=== PATIENT | female | born 1960 | race Two or more races ===

== ENCOUNTER 2019-03-25 06:20 | Inpatient (IN) | payer OTHER ==
[2019-03-25] VITALS (11 sets, daily range): BP systolic 95–142; BP diastolic 50–87
[~2019-03-25] VITALS: Ht 154.9 cm; Wt 89.4 kg
[~2019-03-25 06:20] MED LIST: NKM
[2019-03-25] MEDS ORDERED: ceFAZolin sod 1 GM in NS 55 ML IVPB ONE (07:00)
[2019-03-25] MEDS ORDERED: Propofol 1,000mg/ 100ml btl IV ONE ×2 (07:30→08:30)
[2019-03-25] MEDS ORDERED: Succinylcholine 20mg/ml 10ml vial ONE ×2 (07:33→08:30)
[2019-03-25] MEDS ORDERED: Rocuronium Bromide 50mg/5ml Inj IV ONE ×2 (07:33→08:30)
[2019-03-25] MEDS ORDERED: Midazolam 2mg/2ml Inj ONE (08:08)
[2019-03-25] MEDS ORDERED: fentaNYL 100 mcg/2 mL IV ONE (08:08)
[2019-03-25] MEDS ORDERED: Sterile Water Irrig 1000ml IRRIG ONE (08:30)
[2019-03-25] MEDS ORDERED: NS Irrig 1000ml ONE (08:30)
[2019-03-25] MEDS ORDERED: LR 1000ml ONE (08:30)
[2019-03-25] MEDS ORDERED: Thrombin 5000 units TOPIC ONE (08:47)
[2019-03-25] MEDS ORDERED: Gelfoam Size TOPIC ONE (08:48)
[2019-03-25] MEDS ORDERED: Bacitracin 50000 Units Vial ONE (08:48)
[2019-03-25] MEDS ORDERED: Bupivacaine w/Epi 0.5% 30ml Vial INJ ONE (08:48)
[2019-03-25] MEDS ORDERED: Sodium Chloride 10ml vial INJ ONE (09:46)
[2019-03-25] MEDS ORDERED: Neostigmine 1mg/ml 10ml Inj ONE (09:46)
[2019-03-25] MEDS ORDERED: Glycopyrrolate 0.2mg/ml 1ml Vial ONE (09:46)
[2019-03-25] MEDS ORDERED: Ketorolac 30mg Inj ONE (09:46)
[2019-03-25] MEDS ORDERED: Morphine Sulfate 10mg/ml Inj ONE (09:46)
--- NOTE | 2019-03-25 09:57 | Anethesia Preoperative Eval ---
Anesthesia Pre-op PMH/ROS General Date of Evaluation: Mar 25, 2019 Time of Evaluation: 08:20 Anesthesiologist: Nancy ASA Score: ASA 2 Mallampati Score Class I : Soft palate, uvula, fauces, pillars visible Class II: Soft palate, uvula, fauces visible Class III: Soft palate, base of uvula visible Class IV: Only hard plate visible Mallampati Classification: Class II Surgeon: Xuan Diagnosis: Lumbar radiculopathy Surgical Procedure: Lumbar fusion with laminotomy Anesthesia History: none Family History: no anesthesia problems Allergies: Coded Allergies: No Known Allergies (Unverified , 03/19/19) Medications: see eMAR Patient NPO?: Yes NPO Date: Mar 24, 2019 NPO Time: 2099 Past Medical History Cardiovascular: Denies: HTN, CAD, VT, valve dz, arrhythmia, other Pulmonary: Denies: asthma, COPD, LUH, other Gastrointestinal/Genitourinary: Reports: GERD; Denies: CRI, ESRD, other Neurologic/Psychiatric: Reports: other - chronic pain; Denies: dementia, CVA, depression/anxiety, TIA Endocrine: Denies: DM, hypothyroidism, steroids, other HEENT: Denies: cataract (L), cataract (R), glaucoma, [place] (L), [place] (R), other Hematology/Immune: Denies: anemia, DVT, bleeding disorder, other Musculoskeletal/Integumentary: Denies: OA, RA, DJD, DDD, edema, other Other: obesity PMH Narrative: as above PSxH Narrative: R ankle ORIF Anesthesia Pre-op Phys. Exam Physician Exam Last Vital Signs Date Time Temp Pulse Resp B/P (MAP) Pulse Ox O2 Delivery O2 Flow Rate FiO2 03/25/19 08:03 Room Air 03/25/19 07:28 98.2 85 20 142/87 (105) 98 Constitutional: NAD Neurologic: CN 2-12 intact Cardiovascular: RRR, no M/R/G Respiratory: CTA Gastrointestinal: S/NT/ND Airway Exam Mallampati Score: Class II MO: full Neck: flexible ROM: full Teeth: intact Dentures: no upper, no lower Anesthesia Pre-op A/P Labs see chart Studies Pre-op Studies: EKG - NSR, CXR - WNL Risk Assessment & Plan Assessment: ASA 2 Plan: GA with ETT neuromonitoring Status Change Before Surgery: No Pre-Antibiotics Drug: Ancef 2gr. Given Within 1 Hr of Incision: Yes Time Given: 09:40 Jeremy Cruz MD Mar 25, 2019 09:57
[2019-03-25] MEDS ORDERED: Acetaminophen (Non formulary) 100 ML IV ONE (10:00)
[2019-03-25] MEDS ORDERED: ePHEDrine 50mg/ml Inj ONE (10:21)
--- NOTE | 2019-03-25 11:45 | Pre-Procedure Note/Attestation ---
Pre-Procedure Note/Attestation Complete Prior to Procedure Procedure Narrative: L45 XLIF/PSF with decompression Indications for Procedure Pre-Operative Diagnosis: L45 stenosis and spondylolisthesis Attestation I attest that I discussed the nature of the procedure; its benefits; risks and complications; and alternatives (and the risks and benefits of such alternatives ), prior to the procedure, with the patient (or the patient's legal contact representative). I attest that, if there was a reasonable possibility of needing a blood transfusion, the patient (or the patient's legal contact representative) was given the [facility] standardized written summary, pursuant to the Eliezer Dylan Blood Safety Act ([place] Health and Safety Code # 1645, as amended). I attest that I re-evaluated the patient just prior to the surgery and that there has been no change in the patient's H&P, except as documented below: Erickson Govea MD Mar 25, 2019 11:45
[2019-03-25] MEDS ORDERED: Vancomycin 1gm vial IVPB ONE (12:17)
[2019-03-25] MEDS ORDERED: Propofol 200mg/20ml IV ONE ×4 (12:22→14:39)
[2019-03-25] MEDS ORDERED: Rate Change PCA 1 Each MISC PRN (13:30)
[2019-03-25] MEDS ORDERED: Chloraseptic Spray 20mL Bottle ORAL PRN (13:30)
[2019-03-25] MEDS ORDERED: oxyCODONE 5mg IR tab ORAL PRN (13:30)
[2019-03-25] MEDS ORDERED: Hydromorphone 0.5mg/0.5ml inj SUBQ PRN (13:30)
[2019-03-25] MEDS ORDERED: Cyclobenzaprine 10mg Tab ORAL PRN (13:30)
[2019-03-25] MEDS ORDERED: PCA Education Pamphlet MISC ONE (13:30)
[2019-03-25] MEDS ORDERED: Metoclopramide 10mg/2ml Inj IVP PRN (16:00)
[2019-03-25] MEDS ORDERED: Midazolam 2mg/2ml Inj IVP PRN (16:00)
[2019-03-25] MEDS ORDERED: DiphenhydrAMINE 50mg/ml Inj IVP PRN (16:00)
[2019-03-25] MEDS ORDERED: Ketorolac 30mg Inj IV PRN (16:00)
[2019-03-25] MEDS ORDERED: Hydromorphone 0.5mg/0.5ml inj IVP PRN (16:00)
[2019-03-25] MEDS ORDERED: LR 1000ml 1,000 ML IVLG SCH (16:00)
[2019-03-25] MEDS ORDERED: Meperidine 50mg/ml Inj(FOR RIGORS ONLY) IVP PRN (16:00)
[2019-03-25] MEDS ORDERED: Milk of Magnesia 30ml Ud ORAL PRN (16:30)
--- NOTE | 2019-03-25 16:38 | Brief Operative Note ---
Immediate Post Operative Note Operative Note Pre-op Diagnosis: L45 stenosis and spondylolisthesis Procedure: L45 XLIF, psf, and laminectomy L4 and L5 Post-op Diagnosis: same as pre-op Surgeon: yovana Propeller Tester: OLIVIER Booker Additional Surgeons: Bc Anesthesiologist: dex Anesthesia: general Specimen: none Complications: none Condition: stable Fluids: 2L Estimated Blood Loss: volume - 300 Drains: hemovac Implant(s) used?: Yes - 4web lat cage, spinal element screws Erickson Govea MD Mar 25, 2019 16:38
--- NOTE | 2019-03-25 17:07 | Immediate Post-Op Evaluation ---
Immediate Post-Op Evalulation Immediate Post-Op Evalulation Procedure: Lateral approch to L4-L5 discectomy and interbody fusion with pedicle screw Date of Evaluation: Mar 25, 2019 Time of Evaluation: 17:06 IV Fluids: 2000 Blood Products: none Estimated Blood Loss: 300 Urinary Output: 700 Blood Pressure Systolic: 106 Blood Pressure Diastolic: 68 Pulse Rate: 112 Respiratory Rate: 22 O2 Sat by Pulse Oximetry: 99 Temperature (Fahrenheit): 98.3 Pain Score (1-10): 1 Nausea: No Vomiting: No Complications none Patient Status: reacts, patent, extubated, none Hydration Status: adequate Jeremy Cruz MD Mar 25, 2019 17:07
[2019-03-25] MEDS: D5 1/2NS 1,000 ML IV SCH (17:30)
[2019-03-25] MEDS ORDERED: Docusate 100mg cap ORAL SCH (18:00)
[2019-03-25] MEDS: PCA HYDROmorphone 1mg/ml 30 ML IV PRN (18:07)
--- NOTE | 2019-03-25 18:50 | NUR ---
NURSE NOTES: Pt arrived from surgery in stable condition on 3 liters. Has sensation to bilateral feet. Bandage clean and intact. Hemovac on . Ice pack to back. Provided with icechips for complains of dry mouth. Informed to take small sips due to posible nausea from anesthesia . FC in place
[2019-03-25] MEDS: PCA shift volume MISC SCH (19:00)
--- NOTE | 2019-03-25 19:25 | NUR ---
NURSE NOTES: Received pt resting in bed. AAO x 4, on NC 3L. Hemovac intact and draining well. Camacho intact and draining by gravity. IV intact and running D5 1/2 NS @ 100. Pt has DIRECTOR OF INSTRUCTION and pain 3/10 on back. Bed locked, lowest position, alarm on, side rails up, call light within reach. Will continue to monitor.
--- NOTE | 2019-03-25 19:45 | Consultation ---
DATE OF CONSULTATION: 03/25/2019 CONSULTING PHYSICIAN: Cristiano Carbajal M.D. REFERRING PHYSICIAN: Erickson Govea M.D. REASON FOR CONSULTATION: Acute pain consult. HISTORY OF PRESENT ILLNESS: Dear Dr. Erickson Govea, Thank you kindly for consulting me to evaluate and render an opinion as to how to proceed in the management of the patient's acute postoperative lumbar spine pain after lumbar spine fusion surgery with instrumentation today. On request, I saw the patient for acute pain consult. I performed detailed history and physical examination. I discussed the case with the orthopedic charge nurse RNJaylin along with the hospital pharmacist and the recovery room nurse, RNJaron. I spent over 75 minutes in consultation with an additional 30 minutes in medical record review. Multiple records were reviewed including utilization review and surgical authorization by [facility] [employer], dated 01/24/2019 authorizing lumbar spine fusion surgery as certified and authorized. Multiple preop records were reviewed including preoperative history and physical by Dr. Javier Boone on 03/18/2019 along with diagnostic testing including 12-lead EKG, laboratory studies, pulmonary function testing, and chest x-ray. Multiple records were reviewed from today's date of surgery at [facility], dated 03/25/2019 including consent for surgical treatment, consent for anesthesia, consent for blood products, medication administration record, medication reconciliation order form, PACU record, PACU orders, anesthesia record, pre- and post anesthesia evaluation record, surgical invasive procedure check list, preop nurse plan of care, initial nursing assessment, 24-hour medical surgical flow sheet, implant log, guidelines for prophylactic antibiotics, guidelines for DVT prophylaxis, Nadira for cognitive disability. PAST MEDICAL HISTORY: 1. Acute postoperative lumbar spine pain, status post lumbar spine fusion surgery with instrumentation by Dr. Erickson Govea in March 2019. 2. Work-related injury. 3. Obesity. PAST SURGICAL HISTORY: Right leg fracture repair in 2015. MEDICATIONS: At home, NSAIDs and p.r.n. pain medications. ALLERGIES: No known drug allergies. SOCIAL HISTORY: Negative. REVIEW OF SYSTEMS: Per attending physician. PHYSICAL EXAMINATION: VITAL SIGNS: Age 58, height 5 feet 2 inches, weight 194 pounds, body mass index 35. Vital signs in the medical record. HEENT: Normocephalic and atraumatic. Nasal cannula oxygen in place. NEUROLOGIC: A detailed neurologic exam per Dr. Govea. Pain with range of motion. ABDOMEN: Obese. Positive bowel sounds. HEART: Regular rate and rhythm. Camacho catheter in place. BREASTS/GENITOURINARY: Deferred. LABORATORY AND DIAGNOSTIC DATA: Diagnostic testing shows laboratory studies from 03/19/2019 with an INR 1.1. PTT 26. Glucose 85. Sodium 140, potassium 4.4, chloride 104, bicarbonate 27, BUN 7, creatinine 0.7, calcium 9.1. Total protein 7.6, albumin 4.4, alkaline phosphatase 65. AST is 14, ALT is 19. Total bilirubin 0.9. White count 4, hematocrit 40, platelets 378,000. Urine toxicology screen is negative. A 12-lead EKG shows normal sinus rhythm, ventricular rate 72, dated 03/18/2019. No evidence for acute cardiac ischemia. Preoperative chest x-ray shows no acute intrathoracic process, 03/18/2019. Pulmonary function testing shows normal spirometry, 03/18/2019. IMPRESSION: 1. Acute postoperative lumbar spine pain, status post lumbar spine fusion surgery with instrumentation by Dr. Erickson Govea in March 2019. 2. Work-related injury. 3. Obesity. TREATMENT RECOMMENDATIONS: I had selected a Dilaudid SLATE HANDLER to start to this patient with 0.2 mg demand dose at 10-minute lockout and 1 mg 1 hour limit. Additionally, I have ordered a breakthrough dose of Dilaudid 0.5 mg subcutaneously every 3 hours p.r.n. for severe pain. I have added [place] 10/325 one tablet orally every 3 hours p.r.n. mild pain complaints and I have ordered oxycodone instant release 5 mg orally every 3 hours p.r.n. for moderate pain. I have added p.r.n. dose of Flexeril 10 mg q.8 h. in case of any muscle spasm complaints. I have asked the nursing team to place Chloraseptic spray at the bedside in case of any sore throat complaints. Topical analgesia after a lengthy surgical intubation. I will empirically place the patient on Pepcid 20 mg b.i.d. for GI ulcer prophylaxis and I have also ordered. Zofran 4 mg intravenously every 4 hours p.r.n. as a rescue antiemetic. I have ordered Benadryl 25 mg orally every 6 hours p.r.n. for any itching complaints and clonidine 0.1 mg has been ordered every 8 hours p.r.n. for systolic blood pressure readings greater than [address] the patient on Colace 100 mg b.i.d. to help promote bowel regularity while she is on opioid narcotics. I have ordered incentive spirometer and encourage good pulmonary toilet in this obese woman. I will defer DVT prophylaxis to the surgeon. Cristiano Carbajal M.D. DR: LORETTA JOB#: [id number] CC:
--- NOTE | 2019-03-25 19:57 | NUR ---
HAND-OFF: Report given to Teddy GALLEGO .
[2019-03-25] MEDS: Docusate 100mg cap ORAL SCH (20:22)
[2019-03-25] MEDS: ceFAZolin sod 1 GM in D5W 55 ML IV SCH (20:22)
[2019-03-26] VITALS (7 sets, daily range): BP systolic 91–122; BP diastolic 56–70
[2019-03-26] MEDS: ceFAZolin sod 1 GM in D5W 55 ML IV SCH ×2 (02:15→09:34)
[2019-03-26] MEDS: D5 1/2NS 1,000 ML IV SCH ×2 (02:16→12:34)
[2019-03-26] MEDS: PCA shift volume MISC SCH ×2 (07:00→19:20)
[2019-03-26 07:10] LABS: EOSINOPHILS % (AUTO) 0.4 % (0.0-3.0); HEMATOCRIT 30.2 % (37.0-47.0); HEMOGLOBIN 9.9 G/DL (12.0-16.0); LYMPHOCYTES % (AUTO) 29.3 % (20.0-45.0); MEAN CORPUSCULAR VOLUME 88 FL (80-99); MONOCYTES % (AUTO) 10.4 % (1.0-10.0); NEUTROPHILS % (AUTO) 58.9 % (45.0-75.0); PLATELET COUNT 276 K/UL (150-450); RED BLOOD COUNT 3.42 M/UL (4.20-5.40); RED CELL DISTRIBUTION WIDTH 12.6 % (11.6-14.8); WHITE BLOOD COUNT 6.9 K/UL (4.8-10.8)
--- NOTE | 2019-03-26 07:35 | 48 Hour Post Anesthesia Eval ---
Post Anesthesia Evaluation Procedure: Lateral approch to L4-L5 discectomy and interbody fusion with pedicle screw Date of Evaluation: Mar 26, 2019 Time of Evaluation: 07:34 Blood Pressure Systolic: 116 0: 72 Pulse Rate: 68 Respiratory Rate: 20 Temperature (Fahrenheit): 97.6 O2 Sat by Pulse Oximetry: 98 Airway: patent Nausea: No Vomiting: No Pain Intensity: 3 Hydration Status: adequate Cardiopulmonary Status: stable Mental Status/LOC: patient returned to baseline Follow-up Care/Observations: n/a Post-Anesthesia Complications: none Follow-up care needed: N/A Jeremy Cruz MD Mar 26, 2019 07:35
--- NOTE | 2019-03-26 08:12 | NUR ---
HAND-OFF: Report given to LASHONDA Ch.
--- NOTE | 2019-03-26 08:15 | NUR ---
NURSE NOTES: Received report from LASHONDA Gamble. Pt is Alert and awake, on 3LNC, no apparent distress noted. Camacho intact and draining, IV intact and running fluids, Hemovac intact and draining. Pt has PROJECT MGR and pain 4/10 on her back. Bed locked in lowest position, side rails up, call light within reach. Will continue to monitor.
--- NOTE | 2019-03-26 09:11 | Orthopedic Spine Progress Note ---
Ortho Spine - Progress Note Subjective Symptoms: c/o post-op back pain - L thigh numbness, improved - as compared to pre-op Objective Vital Signs: Last 24 Hour Vital Signs Date Time Temp Pulse Resp B/P (MAP) Pulse Ox O2 Delivery O2 Flow Rate FiO2 03/26/19 08:37 85 20 100 Nasal Cannula 2.0 28 03/26/19 08:00 98.0 87 20 92/57 (69) 100 03/26/19 08:00 83 15 99 03/26/19 07:35 68 20 98 03/26/19 04:00 97.9 81 18 111/58 (75) 100 03/26/19 04:00 81 18 100 03/26/19 00:00 97.9 85 16 118/67 (84) 99 03/26/19 00:00 85 20 99 03/25/19 21:10 82 18 100 Nasal Cannula 2.0 28 03/25/19 21:00 Nasal Cannula 3.0 03/25/19 20:00 100 20 95 03/25/19 20:00 97.3 100 20 101/60 (74) 95 03/25/19 19:00 98.9 97 20 106/50 (68) 97 03/25/19 18:14 98.3 03/25/19 18:14 98.3 03/25/19 18:10 12 03/25/19 18:10 98.3 105 12 114/62 99 Nasal Cannula 3 03/25/19 17:55 104 17 108/59 99 Nasal Cannula 3 03/25/19 17:40 109 12 114/67 99 Nasal Cannula 3 03/25/19 17:25 115 14 111/61 99 Simple Mask 6 03/25/19 17:15 113 13 104/60 100 Simple Mask 6 03/25/19 17:07 112 22 99 03/25/19 17:05 119 13 97/59 100 Simple Mask 6 03/25/19 17:00 117 15 101/62 100 Simple Mask 6 03/25/19 16:58 98.3 127 14 95/58 100 Simple Mask 6 I&O: Intake and Output 03/25/19 03/26/19 19:00 07:00 Intake Total 2250 ml Output Total 1030 ml 450 ml Balance 1220 ml -450 ml Intake Oral 0 ml IV Total 2250 ml Output Urine Total 700 ml 350 ml Drainage Total 30 ml 100 ml Estimated Blood Loss 300 ml # Voids 1 Wound: clean, intact Drains: hemovac Neuro Status: abnormal - L thigh numbness Assessment Procedure Performed: L45 XLIF, psf, and laminectomy L4 and L5 Plan Plan: PT, pain management, continue drain, other - dc Erickson Pino MD Mar 26, 2019 09:11
--- NOTE | 2019-03-26 09:30 | NUR ---
PT EVALUATION NOTE Patient seen for initial evaluation, see complete evaluation for details. Patient presents with impaired functional mobility and pain s/p lumbar surgery. Patient required mod assist to come to sitting at the EOB using log roll technique however patient c/o increasing dizziness and was unable to participate in OOB activities. Patient will benefit from skilled inpatient PT intervention to address strength, balance and safety for improved level of functional mobility while maintaining back precautions and with proper body mechanics. Recommend discharge home once medically cleared by MD. Patient may benefit from FWW for home use depending on patient's progress. May also benefit from elevated toilet seat. Addendum: 03/26/19 at 1250 by DENISHA RIBEIRO PT Amended: Links added.
[2019-03-26] MEDS: Docusate 100mg cap ORAL SCH ×2 (09:34→17:36)
--- NOTE | 2019-03-26 09:50 | NUR ---
NURSE NOTES: Hector drummond per Dr. Govea's order.
--- NOTE | 2019-03-26 12:50 | NUR ---
NURSE NOTES: Pt has voided.
--- NOTE | 2019-03-26 14:27 | NUR ---
CASE MANAGEMENT: INITIAL REVIEW 58 YR OLD FEMALE HERE FOR ELECTIVE SURGERY SI: L 4&5 STENOSIS AND SPONDYLOLISTHESIS 98.2 85 20 142/87 98% ON RA IS: L4&5 XILF, PSF, AND LAMINECTOMY L4 L5 IV CEFAZOLIN Q8HR X3 BAGS IV PORTRAIT PHOTOGRAPHER BID IV LACTATED RINGER X1 : IN SURGERY NOW DCP: HOME WHEN MEDICALLY CLEARED CASE MANAGEMENT: REVIEW 03/26/19 SI: POD# 1 L4&5 XILF, PSF, AND LAMINECTOMY L4 L5 98.0 87 15 92/57 100% 2L NC H/H 9.9/30.2 IS: IV DEXTROSE @100ML/HR IV CEFAZOLIN Q8HR X3 BAGS IV PORTRAIT PHOTOGRAPHER BID \: 3E MED SURG UNIT DCP: HOME WHEN MEDICALLY CLEARED PLAN: PT KAMALA HARRIS DC PLANNING
--- NOTE | 2019-03-26 16:33 | Diagnostic Imaging Report ---
Indication: Intraoperative imaging COMPARISON: None FINDINGS: 10 fluoroscopic images were obtained intraoperatively. Fluoroscopic time 90 seconds Intraoperative images obtained with fluoroscopy showing discectomy and prosthesis placement at L4-5, posterior instrumented fusion with pedicle screws and fusion rods. IMPRESSION: Intraoperative imaging as described above
[2019-03-26] MEDS ORDERED: HYDROcodone/Acetamin 10/325 tab ORAL SCH (17:00)
--- NOTE | 2019-03-26 17:44 | NUR ---
NURSE NOTES: RN made Dr. Carbajal aware of pt's BP 91/56. He said it's ok to administer [place] he scheduled for 1700. Will follow.
[2019-03-26] MEDS: PCA HYDROmorphone 1mg/ml 30 ML IV PRN (18:42)
--- NOTE | 2019-03-26 19:00 | Progress Note ---
DATE: 03/26/2019 ACUTE PAIN MANAGEMENT PHYSICIAN PROGRESS NOTE MEDICATIONS: Medication administration record reviewed. Medications include Restoril, Compazine, Chloraseptic spray, oxycodone, Narcan, Dilaudid PEST CONTROL SPECIALIST, milk of magnesia, Toradol, Dilaudid, [place], Pepcid, Colace, Benadryl, Flexeril, Catapres, and Tylenol. LABORATORY DATA: Laboratory studies from this morning, March 26, 2019, shows white count 7, hematocrit 30, and platelets 276,000. VITAL SIGNS: Within normal limits. Afebrile, pulse 85, respirations 18, blood pressure 111/70, and oxygen saturation 100% on room air. I saw the patient at the bedside with the nurse, LASHONDA Mcneil, and nurse, LASHONDA Lam. The patient was seen by the surgeon, Dr. Arroyo, this morning and was pleased with the patient's progress. The indwelling lumbar spine drain catheter continues to put-out output, 100 mL overnight, so we will continue to monitor the drain output for another 24 hours. The patient has been tolerating advancing diet without any nausea problems. I did encourage the patient to use the oral [place], which I will have the nurse dose with her dinner tonight. Additionally, I instructed the patient on proper use of the PEST CONTROL SPECIALIST unit to encourage more aggressive usage, so the patient can ambulate better with physical therapy. The patient appears neurologically grossly intact. She denies any shortness of breath or chest pain. The patient has tolerated [place] well and I will leave a prescription for [place] and Flexeril for outpatient usage. I will continue the PEST CONTROL SPECIALIST for now and the patient will continue to have a p.r.n. breakthrough dose of Dilaudid available for severe pain episodes. I will streamline her medication list to reduce the risk of medication-administration errors. She remains on Colace to help promote bowel regularity and a p.r.n. dose of milk of magnesia is available as a rescue laxative. Encourage aggressive incentive spirometer usage for good pulmonary toilet. Cristiano Carbajal M.D. DR: Kevin JOB#: [id number] CC:
--- NOTE | 2019-03-26 19:15 | NUR ---
HAND-OFF: Report given to LASHONDA Estrada.
--- NOTE | 2019-03-26 20:08 | NUR ---
NURSE NOTES: Received report from Ariella Dickens RN. Patient is resting semi-fowlers in bed with pillow support. Hemovac is attached to lower back. Dressing intact. Left wrist IV is locked. Patient is on 3L NC. MANAGER LEADERSHIP DEVELOPMENT pump and remote at bedside. No c/o pain at this time. Bed in low and locked position, call light within reach. Family at bedside. Will continue to monitor.
[2019-03-26] MEDS: HYDROcodone/Acetamin 10/325 tab ORAL PRN (21:49)
--- NOTE | 2019-03-26 23:02 | Operative Note - Dictated ---
DATE OF OPERATION: 03/25/2019 SURGEON: Erickson Govea M.D. RN FIRST ASSISTANT: Ron Booker PA-C. ANESTHESIOLOGIST: Jeremy Cruz M.D. ANESTHESIA TYPE: General endotracheal anesthesia. PREOPERATIVE DIAGNOSES: 1. Spinal stenosis due to subluxation/spondylolisthesis L4-L5. 2. Status post extreme lateral oblique lateral fixation, L4-L5. POSTOPERATIVE DIAGNOSES: 1. Spinal stenosis due to subluxation/spondylolisthesis L4-L5. 2. Status post extreme lateral oblique lateral fixation, L4-L5. OPERATION PERFORMED: 1. Subtotal laminectomy at L4 and at L5. 2. Complete facetectomy, right side L4-L5 and subtotal facetectomy L4-L5 on the left side. 3. Neurolysis. 4. Posterior spinal fusion L4-L5. 5. Posterior spinal instrumentation using pedicle screw fixation (cannulated screws by spinal elements). 6. Use of operative microscope. 7. Use of fluoroscopy. 8. Neurodiagnostic monitoring. 9. Use of local autograft. 10. Use of bacterin allograft. ESTIMATED BLOOD LOSS: 1200 mL. FLUIDS: 2 liters. URINE OUTPUT: 1500. INDICATIONS: This is a pleasant 58-year-old with apparently chronic and significant gastroesophageal reflux disease with acid complex due to severe spinal stenosis, spondylolisthesis, and advanced arthrosis at L4-L5 level. I did discuss options with her due to her disc height of the L4-L5 anterior structural support was recommended and performed earlier in the day through a separate skin incision as a separate procedure. Once that procedure was completed then the patient was turned and posterior fixation and decompression to be necessary. This patient was explained in detail risks and benefits of surgery to include, but not limited to, bleeding, infection, damage to nerves, vessels, tendons, anesthetic risk, allergic reaction, aspiration, possibly . The patient understood and wished to proceed. OPERATIVE PROCEDURE IN DETAIL: Under benefits of general anesthesia, the patient was turned prone onto the Jae frame. All bony prominences were well padded. The back was prepped and draped in the usual sterile fashion. Under fluoroscopic guidance, the L4-L5 level was identified. The skin was infiltrated with Marcaine with epinephrine. Incision was carried out through the subcutaneous. Subperiosteal dissection was carried out from L3 through L5. Care was taken to avoid injury to the L3-L4 facet joint. Under fluoroscopic guidance, the L4-L5 level was identified and the facet capsule at L4-5 was removed. At this point, using both anatomic and fluoroscopic landmarks, pedicle screws were placed at L4 and L5, first on the right side than on the left side. Prior to final screw placement, which was performed using standard technique of drilling and probing, a use of a tap and placement of appropriate size screws using a guidewire technique, the intertransverse region was drilled out and a strip of Bacterin bone was deployed into the water taxi driver lateral corner. Once the screws were placed, the right side was packed in an identical fashion and the left side then was packed off. At this point, copious irrigation was performed. A high power microscope was brought in place and the subtotal laminectomy of L4 inferior 2/3 and L5 superior 1/2 was posteriorly drilled down and removed in a piecemeal fashion using Kerrison Rongeurs. Severe spinal compression was noted. Severe foraminal compression was noted. Due to the relative hypomobility, a subtotal facetectomy was performed on the left at L4-L5 and a complete facetectomy on the right. The nerve roots were both probed free on the right and on the left. Valsalva maneuver was performed demonstrating no CSF leak. Copious irrigation was then performed. The bone from the bone harvest was then packed along the posterolateral regions after the connecting rods were inserted, compressed, and serially tightened with a locking knot. Once satisfied with the posterolateral fusion, instrumentation, and decompression, copious irrigation was performed. FloSeal was applied to the leading bone edges and mild epidural oozing. It was decided that a medium-sized Hemovac drain should be placed below the fascia. The patient received 2/3 of an ampule of vancomycin powder deep to the fascia. Fascia was repaired using #1 Vicryl and the remainder of the vancomycin powder was super fascial. Subcutaneous closure using 2-0 Vicryl was achieved. Sterile dressing was applied after Dermabond was applied. The patient was subsequently turned onto her back, awakened, extubated, and transferred to recovery room. Please note that once all the screws were placed posteriorly, the pedicle screw stimulation demonstrated adequate impedance of greater than 18 milliamps. The patient tolerated the procedure well. Sponge and needle counts were correct. The patient was transferred to recovery room in stable condition. Erickson Donald Govea DR: JASMIN JOB#: [id number] CC: SHON
[2019-03-27] VITALS: BP 99/55
[2019-03-27] MEDS: HYDROcodone/Acetamin 10/325 tab ORAL PRN ×4 (03:54→19:31)
[2019-03-27 04:00] VITALS: BP 123/74
--- NOTE | 2019-03-27 07:15 | Progress Note ---
DATE: 03/27/2019 ACUTE PAIN MANAGEMENT PHYSICIAN PROGRESS NOTE MEDICATIONS: Medication administration record reviewed. Medications include Tylenol, Catapres, Flexeril, Benadryl, Colace, Pepcid, Linden ,Dilaudid, Toradol, milk of magnesia, Dilaudid SURGICAL GARMENT INSPECTOR, Narcan, Chloraseptic, Restoril. LABORATORY STUDIES: No interval laboratory studies. Yesterday's labs from 03/26/2018 shows a hematocrit of 30 with a normal white count of 7 and platelets of 276. Vital signs shows oxygen saturation 93% on room air, afebrile, pulse 100, respirations 20, blood pressure 123/74. I saw the patient at the bedside. I discussed the case with the nurse RN, Sean along with the surgeon, Dr. Govea. The patient was started on oral Linden during the maintenance supervisor 2nd shift, and has tolerated this medication very well. Not only did I leave a prescription for Linden and Flexeril for outpatient usage, but I also encouraged the patient and the nursing team to use this medication frequently, to help wean off of the SURGICAL GARMENT INSPECTOR unit, within the next 12 hours hopefully. The patient is breathing comfortably. She is tolerating advancing diet. I would recommend to try to increase her ambulation with physical therapy to help expedite her discharge planning. The patient still had an output via indwelling lumbar spine drain catheter over 100 mL during the nightshift. Dr. Arroyo will continue to follow the drain output and decide when to remove the Hemovac drain. The Camacho catheter was removed yesterday and the patient has been voiding urine well. At this point, we will continue supportive care and try to transition the patient onto oral analgesics so that she can discharge home to the care of her within the next 36 hours. Cristiano Carbajal M.D. DR: EFREN JOB#: [id number] CC:
[2019-03-27] MEDS: PCA shift volume MISC SCH (07:25)
--- NOTE | 2019-03-27 07:47 | NUR ---
HAND-OFF: Report given to LASHONDA Campos. Patient is stable condition.
[2019-03-27 08:00] VITALS: BP 108/68
--- NOTE | 2019-03-27 08:00 | NUR ---
NURSE NOTES: Received report Carlos RN, pt a/a/o x4 laying in bed with no signs of distress or other issues at this time. surgical dressing dry and intact. Hemovac in place draining well long term care phlebotomist output: 95ml. IV on the left wrist gauge#20 TKO. call light within reach, bed in lowest position, side rales up x2. I will f/u as needed.
[2019-03-27] MEDS: Docusate 100mg cap ORAL SCH ×2 (08:53→18:28)
--- NOTE | 2019-03-27 08:59 | Orthopedic Spine Progress Note ---
Ortho Spine - Progress Note Subjective Symptoms: c/o post-op back pain - l thigh numbness, improved - as compared to pre-op Objective Vital Signs: Last 24 Hour Vital Signs Date Time Temp Pulse Resp B/P (MAP) Pulse Ox O2 Delivery O2 Flow Rate FiO2 03/27/19 08:00 98.0 96 14 108/68 (81) 100 03/27/19 08:00 96 14 100 03/27/19 04:00 98.5 100 20 123/74 (90) 93 03/27/19 04:00 100 20 93 03/27/19 00:00 98 16 98 03/27/19 00:00 99.5 98 16 99/55 (70) 98 03/26/19 21:45 94 18 98 Nasal Cannula 2.0 28 03/26/19 21:00 Nasal Cannula 3.0 03/26/19 20:00 100 18 97 03/26/19 20:00 99.0 100 18 98/67 (77) 95 03/26/19 17:35 91/56 (68) 03/26/19 16:00 97 13 99 03/26/19 16:00 99.3 106 20 122/68 (86) 99 03/26/19 12:00 85 18 100 03/26/19 12:00 98.0 88 18 111/70 (84) 98 03/26/19 09:50 Nasal Cannula 3.0 03/26/19 09:00 Nasal Cannula 3.0 I&O: Intake and Output 03/26/19 03/27/19 19:00 07:00 Intake Total 1040 ml Output Total 415 ml 95 ml Balance -415 ml 945 ml Intake Oral 1040 ml Output Urine Total 325 ml Drainage Total 90 ml 95 ml # Voids 2 3 Wound: clean, intact Drains: hemovac Neuro Status: stable Assessment Procedure Performed: L45 XLIF, psf, and laminectomy L4 and L5 Plan Plan: PT, pain management, continue drain, discharge plan Erickson Govea MD Mar 27, 2019 08:59
[2019-03-27 12:00] VITALS: BP 94/63
--- NOTE | 2019-03-27 13:20 | NUR ---
PT NOTE Attempted to see patient for PT treatment. Patient c/o feeling tired, declined to participate with PT. Andres GALLEGO notified, will follow.
--- NOTE | 2019-03-27 14:22 | NUR ---
CASE MANAGEMENT: REVIEW 03/26/19 SI: POD# 1 L4&5 XILF, PSF, AND LAMINECTOMY L4 L5 98.0 87 15 92/57 100% 2L NC H/H 9.9/30.2 IS: IV DEXTROSE @100ML/HR IV CEFAZOLIN Q8HR X3 BAGS IV BENEFITS DIRECTOR BID \: 3E MED SURG UNIT DCP: HOME WHEN MEDICALLY CLEARED PLAN: PT EVAL DC HARRIS DC PLANNING Addendum: 03/27/19 at 1428 by DAYSI BERNABE LVN CASE MANAGEMENT: REVIEW 03/27/19 SI: POD# 2 L4&5 XILF, PSF, AND LAMINECTOMY L4 L5 98.0 96 14 108/68 100% 2L NC IS: IV BENEFITS DIRECTOR BID NORCO PO Q3/PRN PEPCID PO BID COLACE PO BID \: 3E MED SURG UNIT DCP: HOME WHEN MEDICALLY CLEARED PLAN: MONITOR HEMO VAC PAIN MANAGEMENT
[2019-03-27 16:00] VITALS: BP 108/70
--- NOTE | 2019-03-27 16:00 | Operative Note - Dictated ---
DATE OF OPERATION: 03/25/2019 PREOPERATIVE DIAGNOSES: 1. Segmental instability at L4-L5. 2. Spinal stenosis, L4-L5. POSTOPERATIVE DIAGNOSES: 1. Segmental instability at L4-L5. 2. Spinal stenosis, L4-L5. PROCEDURE: 1. Anterior lumbar interbody fusion performed through an oblique lateral approach (anterior to the 00:46 approach) L4-L5. 2. Instrumentation structural titanium 4WEB lateral cage. 3. Use of bone graft substitute (Signafuse). 4. Use of fluoroscopy. 5. Neurodiagnostic monitoring. ESTIMATED BLOOD LOSS: Minimal. COMPLICATIONS: None. FINDINGS: Stable. FIXATION: L4-L5. SURGEON: Erickson Govea M.D. VASCULAR ACCESS SURGEON: Alok Yancey M.D. CROP AND SOIL TECHNICIAN: Ron Booker PA-C. ANESTHESIOLOGIST: Jeremy Cruz M.D. ANESTHESIA TYPE: General endotracheal anesthesia. INDICATIONS: The patient is a very pleasant woman, 58 years old with fairly significant mechanical back pain and radiculopathic complaints of lower extremities. I did review the MRI confirming severe spinal stenosis at L4-L5 and an unstable slippage spondylolisthesis at L4 and L5. Due to the need for a high grade decompression from the posterior approach and near complete bilateral facetectomies, a spinal fusion was recommended and the patient elected to proceed. RISKS NOTE: The patient was explained in detail risks and benefits of surgery to include, but not be limited to those of bleeding, infection, damage to nerves, tendons, anesthetic risk, allergic reaction, aspiration, and possibly . The patient understood and wished to proceed. I did discuss with her the need for an anterior structural support 03:14 and to restore stability of already height segment. Possible risk of femoral nerve and genitofemoral nerve injury was discussed and anterior to the 03:51 approach was recommended due to the high riding . OPERATIVE PROCEDURE IN DETAIL: The patient was taken to operating suite. After general endotracheal anesthesia was obtained, Camacho catheter was placed. All bony prominences were well padded after she was positioned into the right side down lateral decubitus position. The flank on the left was prepped and draped in the usual sterile fashion. The disk at L4-L5 was identified under fluoroscopic guidance on the lateral projection and skin markings were made anterior to the anterior superior iliac spine. At this point, the patient was infiltrated with lidocaine with epinephrine. The incision was sharply carried down through the subcutaneous to the abdominal fascia. The oblique musculature was bluntly dissected in line with fibers first with the external then internal then the transversus levels. Once these levels were delineated, the level deep to the deepest muscle layer was bluntly dissected and retroperitoneal exposure was obtained. Blunt dissection was carried out along the inner table of the ilium down to the area of the disk. The psoas muscle was palpated and 12 was placed anterior lateral corner of the L4-L5 level on the left side. A direct visualization was obtained. A guide wire was placed and verified under fluoroscopic projection. Serial dilations were then achieved and each was tested for placement in the form of the neural structures. At this point, a 4WEB retractor was deployed and it was docked anterior to the 06:38 and this was serially dilated. Visualization of the disk space was achieved. A scalpel was then used to incise the anterolateral corner of the disk. With a series of specialize and angled instruments, a thorough diskectomy and endplate preparation was performed. Once satisfied with this, a trial implant was put in and measured. A 10 mm implant was chosen and it was packed with Signafuse. The device was deployed through a anterolateral approach and upon entry of the disk space was angulated in order to have a straight lateral insertion which was verified under fluoroscopic guidance and noted to be in excellent position. At this point, copious irrigation was performed. Decision was made to close and layered closure of the oblique fascia were achieved using 0 PDS. Once satisfied with this, subcutaneous closure using 2-0 Vicryl and a 4-0 Monocryl skin suture was performed. The patient was then turned onto her back in preparation for the next procedure. Sponge and needle counts were correct. Erickson Govea M.D. DR: JASMIN JOB#: [id number] CC:
--- NOTE | 2019-03-27 19:38 | NUR ---
NURSE NOTES: Received patient in no apparent distress. A&OX4. IV site patent and intact. Hemovac noted on lower back, dressing site patent and intact. Bed in lowest position. Call light within reach. Will continue to monitor.
--- NOTE | 2019-03-27 19:47 | NUR ---
HAND-OFF: Report given to Miquel GALLEGO, pt in stable condition. - Hemovac out put during my shift: 70ml
[2019-03-27 20:00] VITALS: BP 114/63
[2019-03-28] VITALS: BP 104/63
[2019-03-28] MEDS: HYDROcodone/Acetamin 10/325 tab ORAL PRN ×3 (03:09→09:43)
[2019-03-28 04:00] VITALS: BP 117/62
--- NOTE | 2019-03-28 07:00 | Progress Note ---
DATE: 03/28/2019 ACUTE PAIN MANAGEMENT PHYSICIAN PROGRESS NOTE MEDICATIONS: Medication administration record reviewed. Medications include Restoril, Chloraseptic spray, Zofran, milk of magnesia, Dilaudid, [place], Pepcid, Colace, Benadryl, Flexeril, Catapres, and Tylenol. LABORATORY STUDIES: No interval laboratory studies. OBJECTIVE: VITAL SIGNS: Afebrile. Pulse 101, respirations 16, blood pressure 117/62, and oxygen saturation 96% on room air. I saw the patient at the bedside with the nurse Robert GALLEGO. I discussed the case with the surgeon, Dr. Erickson Govea. The patient continued to advance well with physical therapy over the past 24 hours. While her appetite is scant, she is able to tolerate plenty of oral liquids and feels comfortable that she is adequately hydrating. She has no nausea or vomiting symptoms. The patient also denies any chest pain or shortness of breath. The patient is passing flatus and has normal vital signs. She is very compliant using her incentive spirometer, and I encouraged her to continue the incentive spirometer usage and to take the unit to home when she discharges to the care of her , hopefully later today. As the output from the indwelling lumbar spine drain catheter had continued yesterday, Dr. Govea recommended to continue the patient in the hospital over the past 24 hours. During the day shift the output from the indwelling lumbar spine drain catheter was 70 mL. Over the past shift stacker, the output continued to decrease and was 50 mL. With the nurse Robert GALLEGO at the bedside, and the patient placed in the prone position, I examined the lumbar spine dressing. The incision line was clean and dry with DuraBond sealant intact. The drain hole site, also appeared clean and dry with no evidence for erythema or exudate. With the Hemovac drain taken off of suction, and at the end-expiration, I personally removed the indwelling lumbar spine drain catheter. The tip was intact. Alcohol swabbing was applied generously to the drain hole site, along with over the incision area. This was covered with sterile island border gauze dressing. There were no complications. I left a prescription for Flexeril and [place] for outpatient usage. The patient's pain levels have been well controlled using the oral [place] here in the hospital and I feel comfortable that the patient will be able to manage her pain at home with the outpatient prescriptions provided. Dr. Arroyo will detail discharge instructions along with showering instructions to the patient, and the patient will follow up with Dr. Arroyo in the outpatient surgical clinic within the next two weeks for surgical followup. Cristiano Carbajal M.D. DR: TESS JOB#: [id number] CC:
--- NOTE | 2019-03-28 07:20 | NUR ---
HAND-OFF: Report given to Andres GALLEGO.
[2019-03-28 08:00] VITALS: BP 121/66
--- NOTE | 2019-03-28 08:03 | NUR ---
NURSE NOTES: Received report Carlos RN, pt a/a/o x4 laying in bed with no signs of distress or other issues at this time. surgical dressing dry and intact. Hemovac was removed this morning by Dr. Carbajal (out put 50ml). IV on the left wrist gauge#20 TKO. call light within reach, bed in lowest position, side rales up x2. I will f/u as needed. plan to d/c home today.
[2019-03-28] MEDS: Docusate 100mg cap ORAL SCH (09:00)
[2019-03-28 12:00] VITALS: BP 110/69
--- NOTE | 2019-03-28 12:01 | NUR ---
*-* INSURANCE *-* ALL CLINICALS AND REVIEWS HAVE BEEN FAXED TO: [employer] ADJ: ALLEY VERGARA NOTIFYING HER OF THIS ADMISSION P- [phone] F- [phone] ( APPROVED PER THE ABOVE NOTES) Addendum: 03/28/19 at 1352 by GERALD ALLEN CM DISCHARGE SUMMARY NOT SENT , NO D/C SUMMARY IN THE SYSTEM YET
[2019-03-28] MEDS ORDERED: NORCO 10-325 T1 EACH ORAL (12:06)
[2019-03-28] MEDS ORDERED: CYCLOBENZAPRINE10 MG ORAL (12:07)
--- NOTE | 2019-03-28 13:03 | NUR ---
NURSE NOTES: Received order to d/c home. Belongings and discharge instructions given to patient and pt's family. Also given RX for Virgil 10/325 #50 and Flexeril. pt stated that she will fill out RX at her regular phx. IV removed prior to d/c. Also given FWW and raised toilet seat for home use. pt left the floor with no signs of distress or other issues at this time. family will provide transportation. I will f/u as needed.
--- NOTE | 2019-03-30 17:59 | Discharge Summary ---
Discharge Summary Discharge Summary _ DATE OF ADMISSION: 03/25/2019 DATE OF DISCHARGE: 03/28/2019 DISCHARGED BY: Dr. Erickson Govea SURGEON: Dr. Erickson Govea INVASIVE CARDIOLOGIST: Dr. Cristiano Carbajal BRIEF HOSPITAL COURSE: Patient is a 58-year-old female, with significant mechanical back pain and radiculopathic complaints and lower extremities. MRI confirms severe spinal stenosis at the L4-L5 and an unstable slippage spondylolisthesis at L4 and L5. Patient also has chronic and significant gastroesophageal reflux disease with acid complex advanced arthrosis at the L4-L5 level. She is was admitted on 06/2018 and underwent lateral approach to L4-5 discectomy and interbody fusion to patient. She tolerated procedure well. Surgery was uneventful. Post- operatively, patient was admitted for post-op care. She was placed on SCDs for DVT prophylaxis and was encouraged use of incentive spirometer. piping design specialist was consulted. She was seen by PT. Diet was advanced. Patient was breathing comfortably. Camacho catheter was removed. A Hemovac drain was left. Monitor for drainage. Incision was clean, dry and intact. Hemovac drain was removed. Patient was ambulating well with good pain control and was tolerating diet. Patient was eventually cleared for discharge home. FINAL DIAGNOSES: 1. Spinal stenosis due to subluxation/spondylolisthesis L4-L5. 2. Status post extreme lateral oblique lateral fixation, L4-L5. PROCEDURE: 1. Anterior lumbar interbody fusion performed through an oblique lateral approach (anterior to the 00:46 approach) L4-L5. 2. Instrumentation structural titanium 4WEB lateral cage. 3. Use of bone graft substitute (Signafuse). 4. Use of fluoroscopy. 5. Neurodiagnostic monitoring. OPERATION PERFORMED: 1. Subtotal laminectomy at L4 and at L5. 2. Complete facetectomy, right side L4-L5 and subtotal facetectomy L4-L5 on the left side. 3. Neurolysis. 4. Posterior spinal fusion L4-L5. 5. Posterior spinal instrumentation using pedicle screw fixation (cannulated screws by spinal elements). 6. Use of operative microscope. 7. Use of fluoroscopy. 8. Neurodiagnostic monitoring. 9. Use of local autograft. 10. Use of bacterin allograft. (Refer to Operative Report) DISCHARGE DISPOSITION: Patient was discharged home. DISCHARGE MEDICATIONS: Refer to Medication Reconciliation Sheet. DISCHARGE INSTRUCTIONS: Post-op instructions given. Follow-up in 2 weeks as. I have been assigned to complete a DC summary on this account, I was not involved with the patient's management.--IMTIAZ Ramos Jacqueline Robles NP Mar 30, 2019 17:59
--- NOTE | 2019-03-31 11:30 | NUR ---
DISCHARGE PLANNED: SILKE [facility]AGER SENT REQUEST FOR DME ITEMS TO [facility] (VENDOR USED BY INSURANCE) PATIENT WILL RECEIVE FWW AND BEDSIDE [employer] CALLED PATIENT TO VERIFY ITEMS PATIENT STATED SHE HAS A FWW AND A BEDSIDE COMMODE
== END 2019-03-28 12:45 | disposition home or self-care (01) | DRG 460 ==
LOC: SDSOVERFLO 06:33 → 3E 17:28
DX: M48.061 Spinal stenosis, lumbar region without neurogenic claudication (principal); M43.16 Spondylolisthesis, lumbar region; G89.18 Other acute postprocedural pain; E66.9 Obesity, unspecified; Z68.37 Body mass index [BMI] 37.0-37.9, adult; K21.9 Gastro-esophageal reflux disease without esophagitis
CPT/HCPCS: 36415; 72020; 76000; 85025; 86850; 86900; 86901; 87081; 94003; 94150; 94664; J2250; J2405; J2710